=== PATIENT | female | born 1965 | race Caucasian/White ===

== ENCOUNTER 2021-08-13 16:55 | Emergency (ER) | payer BC, SELFPAY ==
[2021-08-13 17:06] VITALS: BP 140/80; PULSE 99; RESP 20; TEMP 37.4; O2SAT 100
--- NOTE | 2021-08-13 17:19 | ED.URI ---
HPI - URI/Sore Throat General Chief Complaint: Upper Respiratory Infection Stated Complaint: Cough/Shortness of Breath Time Seen by Provider: 08/13/21 17:19 Source: patient and family Mode of arrival: ambulatory Limitations: no limitations History of Present Illness HPI Narrative: PATIENT PRESENTS WITH A 6 DAY HISTORY OF COUGH AND CHEST CONGESTION WELL SINUS PRESSURE. PATIENT HAD A NEGATIVE COVID TEST 2 DAYS AGO. PATIENT HAD AN APPOINTMENT WITH PCP TODAY,BUT APPOINTMENT WAS CANCELLED DUE TO HER TARDINESS OF 5 MINUTES. Patient feels as if she is having an asthma flare and thinks that she may need a round of prednisone as well as a refill on her Symbicort inhaler. MD elicited complaint: cough Description of mucous: clear Related Data Home Medications Medication Instructions Recorded Confirmed Spiriva with HandiHaler 08/13/21 albuterol mcg INHALATION 08/13/21 Allergies Allergy/AdvReac Type Severity Reaction Status Date / Time clarithromycin Allergy Rash Verified 08/13/21 17:24 Review of Systems Review of Systems: CONSTITUTIONAL: Denies fever, chills, or sweats. EYES: Denies visual changes, redness, or discharge. ENT: Denies rhinorrhea, congestion, sore throat, or otalgia. CARDIOVASCULAR: Denies chest pain, palpitations, or edema. RESPIRATORY: Denies cough or dyspnea. GASTROINTESTINAL: Denies abdominal pain, nausea, vomiting, or diarrhea. GENITOURINARY: Denies dysuria or hematuria. SKIN: Denies rash or itching. MUSCULOSKELETAL: Denies back pain, joint pain, or myalgia. NEUROLOGIC: Denies headache, numbness, or weakness. PSYCHIATRIC: Denies anxiety or depression. PMFSH Comments At time of signature, agree with nursing past medical, surgical, social and family history. There is no relevant family history pertinent to the presenting complaint Exam Narrative: GENERAL: Well-appearing, well-nourished, and in no acute distress. HEAD: Normocephalic, atraumatic. EYES: PERRLA and EOMI. ENT: Nares clear, no rhinorrhea or epistaxis. Mucous membranes moist. Mild maxillary sinus pressure and tenderness mild postnasal drainage no pharyngeal erythremia no exudate no trismus able to open mouth fully NECK: Supple. CHEST: Clear to auscultation. No respiratory distress. HEART: Regular rate and rhythm. No murmur heard. Normal peripheral pulses. ABDOMEN: Soft, nontender, nondistended, normal active bowel sounds. EXTREMITIES: Normal range of motion. No edema. SKIN: Warm, dry, no rash. NEURO: No focal deficits. Alert and oriented x3. Aleksandar Coma Scale Eye Opening: Spontaneous 4 Aleksandar Coma Scale Motor: Obeys Commands 6 [place] Coma Scale Verbal: Oriented 5 Aleksandar Coma Scale Total 15 Course Course Level of Care: Express Care Visit Vital Signs Vital signs: Vital Signs Temperature 37.4 C 08/13/21 17:06 Pulse Rate 99 08/13/21 17:06 Respiratory Rate 20 08/13/21 17:06 Blood Pressure 140/80 08/13/21 17:06 Pulse Oximetry 100 08/13/21 17:06 Temperature 37.4 C 08/13/21 17:06 Pulse Rate 99 08/13/21 17:06 Respiratory Rate 20 08/13/21 17:06 Blood Pressure 140/80 08/13/21 17:26 Pulse Oximetry 100 08/13/21 17:06 Addressed elevated BP today. Today's blood pressure higher than recommended range. Discussed importance of follow -up with PCP and possible manager long term care effects/cardiovascular events related to HTN. Currently patient denies headache, dizziness, vision changes, CP or shortness of breath. MDM - URI/Sore Throat Differential Diagnosis Differential diagnosis: Likely upper respiratory infection, croup, otitis media, sinusitis, viral infection, bronchitis, influenza and pharyngitis Critical Care Time Critical Care Time Critical Care Time: No Discharge Plan Discharge Clinical Impression: Sinusitis, acute maxillary, Asthma Patient Disposition: Home, Self-Care Condition: Stable Instructions: Antibiotic Form, Asthma (DC) Additional Instructions: Continue to use your inhalers a
[2021-08-13 17:26] VITALS: BP 140/80
== END 2021-08-13 18:01 | disposition home or self-care (01) ==
PROVIDERS: Emergency Provider Nurse Practitioner Family; PCP Internal Medicine
DX: J01.00 Acute maxillary sinusitis, unspecified (principal); J45.909 Unspecified asthma, uncomplicated; Z98.84 Bariatric surgery status
CPT/HCPCS: 99203; G0463

== ENCOUNTER 2022-07-03 08:58 | Emergency (ER) | payer BC, SELFPAY ==
[2022-07-03 09:02] VITALS: BP 151/102; PULSE 87; RESP 16; TEMP 36.7; O2SAT 99
--- NOTE | 2022-07-03 09:07 | ED.URI ---
HPI - URI/Sore Throat General Chief Complaint: Upper Respiratory Infection Stated Complaint: Shortness of Breath Time Seen by Provider: 07/03/22 09:07 Source: patient and RN notes reviewed History of Present Illness HPI Narrative: Patient is a 56-year-old female who presents to urgent care with complaints of shortness of breath, chest congestion, ear pain and sore throat. Patient states that started 5 days ago and she has had positive contact with influenza by both of her daughters. Patient is asthmatic and has been using her inhaler as well as Mucinex with relief. Denies any known fevers. No other acute complaints. No acute distress noted. Patient aware of the plan of care. Some parts of this dictation were generated by voice recognition software and may contain typographical and/or grammatical inaccuracies. Related Data Home Medications Medication Instructions Recorded Confirmed Spiriva with HandiHaler 08/13/21 albuterol 90 mcg/actuation aerosol mcg inhalation 08/13/21 inhaler linaclotide 145 mcg capsule mcg 07/03/22 (Linzess) trazodone 50 mg tablet mg 07/03/22 07/03/22 Allergies Allergy/AdvReac Type Severity Reaction Status Date / Time clarithromycin Allergy Rash Verified 07/03/22 09:12 Review of Systems Review of Systems: CONSTITUTIONAL: Denies fever, chills, or sweats. EYES: Denies visual changes, redness, or discharge. ENT: Reports bilateral otalgia, congestion, sore throat CARDIOVASCULAR: Denies chest pain, palpitations, or edema. RESPIRATORY: reports of mild cough with increased dyspnea GASTROINTESTINAL: Denies abdominal pain, nausea, vomiting, or diarrhea. GENITOURINARY: Denies dysuria or hematuria. SKIN: Denies rash or itching. MUSCULOSKELETAL: Denies back pain, joint pain, or myalgia. NEUROLOGIC: Denies headache, numbness, or weakness. All other systems reviewed are negative, except as documented in HPI. PMFSH Comments At the time of my signature, I reviewed and agree with the nursing past medical, surgical, social, and family history. There is no relevant family history pertinent to the patient complaint. Exam Narrative: GENERAL: This is a well-nourished, well-developed patient, in no apparent distress. HEAD: normocephalic, atraumatic. EYES: PERRL. Sclera clear/white. Vision is grossly intact. EARS: External ears normal, auditory canals clear and without drainage, mild bilateral eustachian tube dysfunction without otitis. TMs normal without perforation. Hearing grossly intact. NOSE: External nose normal with no obvious nasal discharge, nares without redness, no rhinorrhea. THROAT: Mucous membranes moist, posterior pharynx clear. Moderate postnasal drainage NECK: Neck supple, non-tender without lymphadenopathy CARDIOVASCULAR: Regular rate and rhythm without murmurs, gallops, or rubs. RESPIRATORY: Clear to auscultation. Breath sounds equal bilaterally. No wheezes, rales, or rhonchi. GASTROINTESTINAL: Abdomen soft, non-tender, nondistended. Bowel sounds are active. No hepato-splenomegaly, or palpable masses. No guarding. SKIN: warm, intact with no suspicious lesions or rash, good texture and turgor. NEURO: awake, alert, and oriented to person, place and time. There were no obvious focal neurologic abnormalities. EXTREMITIES: No clubbing, cyanosis, or edema. Course Course Level of Care: Express Care Visit Vital Signs Vital signs: Vital Signs Temperature 98.1 F 07/03/22 09:02 Pulse Rate 87 07/03/22 09:02 Respiratory Rate 16 07/03/22 09:02 Blood Pressure 151/102 H 07/03/22 09:02 Pulse Oximetry 99 07/03/22 09:02 Oxygen Delivery Room Air 07/03/22 09:02 Temperature 98.1 F 07/03/22 09:02 Pulse Rate 87 07/03/22 09:02 Respiratory Rate 16 07/03/22 09:02 Blood Pressure 151/102 H 07/03/22 09:02 Pulse Oximetry 99 07/03/22 09:02 Oxygen Delivery Room Air 07/03/22 09:02 reviewed- Patient is informed that they may have pre-hypertension or hyperten
== END 2022-07-03 09:44 | disposition home or self-care (01) ==
PROVIDERS: Emergency Provider Nurse Practitioner Family; PCP Internal Medicine
DX: J11.1 Influenza due to unidentified influenza virus with other respiratory manifestations (principal)
CPT/HCPCS: 99213; G0463

== ENCOUNTER 2025-02-25 01:47 | Day surgery (SDC) | payer BC, SELFPAY ==
[2025-02-14 13:16] VITALS: BMI 28.5
--- OUTSIDE RECORDS SUMMARY | 2025-02-25 01:51 | XMS_ITS | Clinical Summary ---
Author Organization [facility] Address [address] [place] [address] Care Team Providers Care Heel Sorter Name Role Phone Ba Ramsey MD Primary Care Provider + Allergies Active Allergy Reactions Criticality Noted Date Comments Clarithromycin Diarrhea Low Reaction: Diarrhea, Medications traZODone (DESYREL) 50 mg tablet Take 1 tablet (50 mg total) by mouth nightly 2 Active cyclobenzaprine (FLEXERIL) 10 mg tablet Take 1 tablet (10 mg total) by mouth as needed 2 Active albuterol HFA (PROVENTIL HFA,VENTOLIN HFA,PROAIR HFA) 90 mcg/actuation inhaler 2 Active Linzess 290 mcg capsule Take 1 capsule (290 mcg total) by mouth daily 3 Active omeprazole (PriLOSEC) 40 mg capsule Take 1 capsule (40 mg total) by mouth daily Active PNV #[id number] acid-dha 35 mg iron-5 mg iron-1 mg capsule Take 1 tablet by mouth daily Active multivit with min-folic acid 200 mcg tablet,chewable Take 2 Gum by mouth daily Active uadftrzi-skcn-iw llag-hyalur ac 284-811-91-2 mg capsule Take 1 tablet by mouth daily Active ascorbic acid (vitamin C) 1,000 mg tablet Take 1 tablet (1,000 mg total) by mouth daily Active ELDERBERRY FRUIT ORAL Take 1 tablet by mouth daily Active famotidine (PEPCID) 40 mg tabletIndication s:Laryngeal spasm TAKE 1 TABLET (40 MG TOTAL) BY MOUTH NIGHTLY 90 tablet 3 3 Active triamcinolone (KENALOG) 0.1 % creamIndications :Contact dermatitis, unspecified contact dermatitis type, unspecified trigger Apply topically 3 (three) times a day for 10 days 45 g 4 Active Active Problems Problem Noted Date Diagnosed Date Abnormal finding on breast imaging 07/28/2023 Mass of upper outer quadrant of left breast 01/2023 Laryngeal spasm 07/17/2022 Assessment & Plan (07/17/2022 4:00 PM CLINICAL DOCUMENTATION SPEC): Omeprazole 30-60 minutes before first meal of the day Start Pepcid 40 mg at bedtime LPR discussed and Handout provided Referred otalgia of both ears 07/17/2022 Assessment & Plan (07/17/2022 4:00 PM CLINICAL DOCUMENTATION SPEC): TMJ dysfunction discussed and Handout provided Non-seasonal allergic rhinitis due to pollen 05/2023 Assessment & Plan (07/17/2022 4:01 PM CLINICAL DOCUMENTATION SPEC): Flonase 2 sprays into each nostril while looking down over the sink, do not sniff in or blow nose after use for at least 30 minutes daily Obstructive sleep apnea syndrome 08/12/2016 Overview (10/11/2016): GORAN - Obstructive sleep apnea Mass of lower extremity 08/18/2014 Overview (10/11/2016): Mass of thigh Dysfunction of eustachian tube 08/18/2014 Overview (10/11/2016): Dysfunction of eustachian tube Anxiety state 11/20/2013 Overview (10/10/2016): ANXIETY STATE NOS Irritable bowel syndrome 11/20/2013 Overview (10/11/2016): IRRITABLE BOWEL SYNDROME Vitamin D deficiency 05/18/2013 Overview (10/11/2016): Vitamin D deficiency Immunizations Immunization Administration Dates Next Due Influenza, Trivalent, IM (MDV) 04/14/2013 Influenza, Trivalent, Recomb inant, Egg Free, Preservative Free, Antibiotic Free, IM (FLUBLOK) 04/28/2014 Tdap 2009 Surgical History Surgery Date Site/Laterality Comments OTHER SURGICAL HISTORY 2004 hyperparathyroid: parathyroidectomy TONSILLECTOMY Tonsillectomy TOTAL ABDOMINAL HYSTERECTOMY Hysterectomy, total OTHER SURGICAL HISTORY 2013 broken L foot: [facility] ER visit BARIATRIC SURGERY SECTION REDUCTION MAMMAPLASTY 09/04/1993 - 10/04/1993 Bilateral PARATHYROIDECTOMY Bilateral Medical History Medical History Date Comments Hx Other Medical fibroid uterine tumor 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 Asthma Hx Other Medical PCO Hx Other Medical hyperparathyroi d Hx Other Medical vocal cord nodu le Deviated nasal septum deviated n artur septum Gastroesophageal reflux disease GERD Irritable bowel syndrome Irritab le bowel disease Hx Other Medical goiter Asthma Asthma; Comments : [facility] 12/06/2013 - Hx Other Medical back pain; Comm ents: [facility] 12/06/2013 - Hx Other Medical Migraine; Comme nts: [facility] 12/06/2013 - Hx Other Medical Stomach ulcers; Comments: [facility] 12/06/2013 - Hx Other Medical Gastric reflux; Comments: [facility] 12/06/2013 - Hx Other Medical ADHD; Comments: [facility] 12/06/2013 - Hx Other Medical Kidney failure; Comments: [facility] 12/06/2013 - Hx Other Medical Breast reductio n; Comments: [facility] 12/06/2013 - Hx Other Medical broken L foot; Comments: [facility] 03/15/2014 -Dr. Vela Hx Other Medical Re -broke L kaleb t Hx Other Medical preeclampsia IBS (irritable bowel syndrome) PONV (postoperative nausea and vomiting) Sleep apnea Anemia Family History Medical History Relation Name Comments Other Brother HIV; COPD Father COPD; Hypertension Father Hypertension; Other Father CVA; Breast cancer Father's Sister 1 Breast cancer Father's Sister 2 Ovarian cancer Maternal Grandmother Dementia Mother Dementia; Diabetes Mother Diabetes mellit us; Hypertension Mother Hypertension; Hypertension Other 1 Family history of Hypertension; Cancer Other 2 Family history of Cancer; Diabetes Other 3 Family history of Diabetes; Lung disease Other 4 Family history of Lung problems; Thyroid cancer Neg Hx Relation Name Status Comments Brother Father Father's Sister 1 Father's Sister 2 Alive Maternal Grandmother Mother Other 1 Other 2 Other 3 Other 4 Social History Tobacco Use Types Packs/Day Years Used Date Smoking Tobacco: Former Smokeless Tobacco: Never Tobacco Cessation:Counseling Given: Not Answered Alcohol Use Standard Drinks/Week Comments Yes 0 (1 standard drink = 0.6 oz pur e alcohol) AUDIT-C Answer Date Recorded Q1: How often do you have a drink containing alc ohol? 2-4 times a month 05/28/2023 Q2: How many drinks containi ng alcohol do you have on a typical day when you are drinking? 3 or 4 05/28/2023 Q3: How often do you have si x or more drinks on one occasion? Never 05/28/2023 PHQ-2 Answer Date Recorded PHQ-2 Total Score (If total score is 3 or more points, staff should administer the PHQ-9) 0 08/13/2022 Personal Safety Answer Date Recorded Have you ever been in or are you currently in a harmful physical or emotional relationship or is someone making you feel afraid or unsafe? Denies 05/28/2023 Comments No Sex and Gender Information Value Date Recorded Sex Assigned at Not on file Legal Sex Female 6:17 PM CLINICAL DOCUMENTATION SPEC Gender Identity Not on file Sexual Orientation Not on file Obstetrics History Para Term AB IAB SAB Ectopic Multiple Livin g Live Births 2 2 2 Date Outcome GA Total Labor Labor/2nd/3rd Weight Sex Type Anes PTL Sharon A1 A5 Name Clin Term Term Last Filed Vital Signs Vital Sign Reading Time Taken Comments Blood Pressure 148/92 11/04/2023 3:14 PM CDT Pulse 86 11/04/2023 3:14 PM CDT Temperature 37 C (98.6 F) 11/04/2023 3:14 PM CDT Respiratory Rate 17 11/04/2023 3:14 PM CDT Oxygen Saturation 97% 11/04/2023 3:14 PM CDT Inhaled Oxygen Concentration - - Weight 68 kg (150 lb) 11/04/2023 3:14 PM CDT Height 154.9 cm (5' 1) 11/04/2023 3:14 PM CDT Body Mass Index 28.34 11/04/2023 3:14 PM CDT Plan of Treatment Health Maintenance Due Date Last Done Comments Colon Cancer Screening-Colonoscopy 1966 Hepatitis C Screening 1966 Hepatitis B Screening 1984 Zoster Vaccine (1 of 2) 2016 DTaP/Tdap/Td Vaccine (2 - Td or Tdap) 09/13/2019 2009 Depression Screening 08/13/2023 08/13/2022, 05/23/20 17 Regular Well Visit/Exam 18-64 08/13/2023 08/13/2022 Breast Cancer Screening-Mammogram 04/21/2024 04/21/2023, 03/21/2022, 02/16/2021, Additional history exists Influenza Vaccine (#1) 2025 04/28/2014, 2012 Pneumococcal vaccine <65 Aged Out No longer eligible based on patient's age to complete this topic Procedures Procedure Name Priority Date/Time Associated Diagnosis Comments DIAGNOSTIC MAMMOGRAM BILATERAL W CHARLY Schedule Routine, Read Routine (OP Routine) 04/21/2023 8:48 AM CDT Mastodynia from Last 3 Months or Most Recently Relevant to Health Maintenance Results * Diagnostic Mammogram Bilateral W Charly (04/21/2023 8:48 AM CDT) Anatomical Region Laterality Modality Breast Bilateral Mammography 04/21/2023 9:38 AM CDT Impressions 04/21/2023 9:38 AM CDT Lesion in the left breast at the 11 o'clock position most likely represents a complicated cyst and is probably benign. This correlates with the site of focal left breast pain. Follow-up left mammogram and ultrasound is recommended in 6 months time. A normal lymph node correlates with the site of right breast pain/palpable. This is benign. Annual mammography for the right breast is recommended. BI-RADS: 3 - Probably benign Electronically signed by: Annelise Willis M.D. Narrative 04/21/2023 9:38 AM CDT EXAMINATION: DIAGNOSTIC MAMMOGRAM BILATERAL W CHARLY, US BREAST LEFT LIMITED ORDERING HEALTHCARE PROVIDER: BA RAMSEY HISTORY: Bilateral focal breast pain, palpable area right breast, annual study COMPARISON: 03/21/2022, 02/16/2021, 08/16/2015, 04/08/2014 TECHNIQUE: CC and MLO views of the bilateral breasts were obtained with digital technique using breast tomosynthesis with C view. Computer aided detection was utilized. FINDINGS: DENSITY: There are scattered fibroglandular elements in the bilateral breasts. BREASTS: Markers are placed at the site of the focal bilateral breast pain. No mammographic abnormality is identified associated with the markers. Per the survey technologist, the palpable area of the right breast is outside the field of view of mammography. There are no suspicious masses, suspicious calcifications, or other suspicious findings in either breast. There has been no suspicious interval change. TARGETED BILATERAL BREAST ULTRASOUND Targeted right breast ultrasound was performed in the region of interest. At the time of sonographic interrogation, the patient indicated the focal pain and palpable were in fact in the same area. This correlates as the 11 o'clock position 10 cm from the nipple. A normal lymph node is identified with a fatty hilum. No other sonographic findings are appreciated. Targeted left breast ultrasound was performed in the region of interest. Per the patient this correlates as the 11 o'clock position 9 cm from the nipple. There is a vague hypoechoic oval-shaped lesion identified in the superficial tissues measuring 7 mm x 3 mm x 5 mm. Lesion is parallel with the skin. There is no evidence of internal color flow. There is posterior acoustical enhancement. This has the appearance of a complicated cyst. This may correlate with a stable mammographic density which lies approximately 2 cm from the mammographic marker. Ba Ramsey MD IMG MAMMO PROCEDURES Fin al Result from Last 3 Months or Most Recently Relevant to Health Maintenance Insurance [employer] [facility] BL[place] [employer] [place] Care Teams Heel Sorter Relationship Specialty Start Date End Date Ba Ramsey MD [id number] [place] [address] PCP - General 11/19/13
[2025-02-25 08:18] VITALS: BP 132/81; PULSE 66; RESP 18; TEMP 36.6; O2SAT 99; BMI 29.2
--- NOTE | 2025-02-25 08:21 | WPDANESEPPF ---
Anes - Initial Pre Proc Eval Procedure: Operation Date: 02/25/25 09:30 Proposed Procedures p EGD & Diagnostic Colonoscopy - Israel Dodd MD Date/Time: 02/25/25 08:21 Surgeon: Israel Dodd MD Pre Op Diagnosis: Gastro-esophageal reflux disease without esophagit Patient Data Age: 59 Gender: F Height: 1.57 m Weight: 72.7 kg Last Vital Signs Temp 36.6 C 02/25/25 08:18 Pulse 66 02/25/25 08:18 Resp 18 02/25/25 08:18 BP 132/81 02/25/25 08:18 Pulse Ox 99 02/25/25 08:18 O2 Del Method Room Air 02/25/25 08:18 Allergies Allergy/AdvReac Type Severity Reaction Status Date / Time clarithromycin Allergy Rash Verified 02/25/25 08:17 Home Medications ?Medication ?Instructions ?Recorded ?Confirmed ?Type Spiriva with HandiHaler 08/13/21 History albuterol 90 mcg/actuation aerosol 90 mcg inhalation DAILY 08/13/21 02/25/25 History inhaler tiotropium bromide 1.25 2 puff inhalation DAILY COUGH #4 08/13/21 02/25/25 Rx mcg/actuation mist for inhalation grams (Spiriva Respimat) linaclotide 145 mcg capsule 145 mcg PO DAILY 07/03/22 02/25/25 History (Linzess) methylprednisolone 4 mg tablets in See Rx Instructions PO .COMPLEX 07/03/22 02/14/25 Rx a dose pack (Medrol (Brent)) #21 ea trazodone 50 mg tablet 50 mg PO DAILY 07/03/22 02/25/25 History budesonide 160 mcg-glycopyr 9 2 inh inhalation DAILY PRN 02/14/25 02/14/25 History mcg-formot 4.8 mcg/actuation HFA Allergies inhaler (Breztri Aerosphere) famotidine 40 mg tablet 40 mg PO DAILY 02/14/25 02/25/25 History fluticasone fur. 100 mcg-umeclid 1 inh inhalation DAILY 02/14/25 02/25/25 History 62.5 mcg-vilant 25 mcg inhalat.powder (Trelegy Ellipta) magnesium citrate (Citrate of 800 ml PO DAILY 02/14/25 02/25/25 History Magnesia oral) montelukast 10 mg tablet 10 mg PO DAILY 02/14/25 02/25/25 History omeprazole 40 mg capsule,delayed 40 mg PO DAILY 02/14/25 02/25/25 History release Patient hx anesthesia problems: none Family hx anesthesia problems: none Results Review: All pre-operative results and documents have been reviewed as part of the pre-operative evaluation. [facility] Past Medical History Medical History (Updated 02/25/25 @ 08:21 by Shane Marie MD) GORAN (obstructive sleep apnea) Surgical History Surgical History (Updated 02/25/25 @ 08:21 by Shane Marie MD) History of gastric surgery Social History Social History Smoking packs per day: 1 Smoking cigarettes per day: 20.0 Years smoked: 10 Smoking pack-years: 10.00 Smoking status: Former smoker Tobacco type: cigarettes Alcohol intake: current Alcohol use details: Occasionally Substance use: never Substance use type: does not use Living arrangements: with family Spiritual care concerns: No Anes - Eval Final PreProcedure Day of Procedure 02/25/25 08:21 Patient weight: overweight Heart: regular rate and rhythm Lungs: clear to auscultation Airway: Mallampati scale class II Neurological: alert and oriented Last oral intake: >/= 8 hours ASA classification: III Emergent: no Anesthetic plan: proceed Anesthesia type and monitoring: general GIVS and standard monitoring Results Review: All pre-operative results and documents have been reviewed as part of the pre-operative evaluation. Informed Consent: The patient's anesthetic plan and its attendant risks and benefits were discussed with the patient/family/POA. Questions were solicited and answers provided to the satisfaction of the patient/family/POA.
[2025-02-25] MEDS: LACTATED RINGERS 1,000 ML 150 ML IV CONT (08:37)
--- NOTE | 2025-02-25 09:15 | PM.HPGS ---
History of Present Illness History of Present Illness Consent: Risks, benefits, and alternatives have been discussed and questions answered. Patient agrees to proceed with procedure. Chief complaint: Gastro-esophageal reflux disease without esophagit Narrative: Africa Mondragon is a 59 year old female with gastric sleeve since with more gerd on omeprazole and famotidine, also ibs-c with hemorrhoids, last colonoscopy about 6 years ago Review of Systems Review of Systems: All systems reviewed & are unremarkable except as noted in HPI and below PMFSH Past Medical History Medical History (Updated 02/25/25 @ 09:17 by Israel Dodd MD) Irritable bowel syndrome with constipation GERD (gastroesophageal reflux disease) GORAN (obstructive sleep apnea) Surgical History Surgical History (Updated 02/25/25 @ 08:21 by Shane Marie MD) History of gastric surgery Social History Social History Smoking packs per day: 1 Smoking cigarettes per day: 20.0 Years smoked: 10 Smoking pack-years: 10.00 Smoking status: Former smoker Tobacco type: cigarettes Alcohol intake: current Alcohol use details: Occasionally Substance use: never Substance use type: does not use Living arrangements: with family Spiritual care concerns: No Meds Home Medications and Allergies Home Medications ?Medication ?Instructions ?Recorded ?Confirmed ?Type Spiriva with HandiHaler 08/13/21 History albuterol 90 mcg/actuation aerosol 90 mcg inhalation DAILY 08/13/21 02/25/25 History inhaler tiotropium bromide 1.25 2 puff inhalation DAILY COUGH #4 08/13/21 02/25/25 Rx mcg/actuation mist for inhalation grams (Spiriva Respimat) linaclotide 145 mcg capsule 145 mcg PO DAILY 07/03/22 02/25/25 History (Linzess) methylprednisolone 4 mg tablets in See Rx Instructions PO .COMPLEX 07/03/22 02/14/25 Rx a dose pack (Medrol (Brent)) #21 ea trazodone 50 mg tablet 50 mg PO DAILY 07/03/22 02/25/25 History budesonide 160 mcg-glycopyr 9 2 inh inhalation DAILY PRN 02/14/25 02/14/25 History mcg-formot 4.8 mcg/actuation HFA Allergies inhaler (Breztri Aerosphere) famotidine 40 mg tablet 40 mg PO DAILY 02/14/25 02/25/25 History fluticasone fur. 100 mcg-umeclid 1 inh inhalation DAILY 02/14/25 02/25/25 History 62.5 mcg-vilant 25 mcg inhalat.powder (Trelegy Ellipta) magnesium citrate (Citrate of 800 ml PO DAILY 02/14/25 02/25/25 History Magnesia oral) montelukast 10 mg tablet 10 mg PO DAILY 02/14/25 02/25/25 History omeprazole 40 mg capsule,delayed 40 mg PO DAILY 02/14/25 02/25/25 History release Allergies Allergy/AdvReac Type Severity Reaction Status Date / Time clarithromycin Allergy Rash Verified 02/25/25 08:17 Vital Signs Vital Signs - 24 hr 02/25/25 08:18 Temperature 97.8 F Pulse Rate 66 Respiratory Rate 18 Blood Pressure 132/81 Pulse Oximetry 99 Oxygen Delivery Room Air Exam Const: General: comfortable and no acute distress HENMT: Face/Nose/Sinus: Normal nares present Eyes: General: appearance normal, both eyes and all related structures Neck: Neck: no JVD Resp: Auscultation: clear to auscultation bilaterally Cardio: Rate: regular rate Rhythm: regular rhythm GI: Inspection: non-distended GI Palp: Yes Soft to palpation Skin: General skin exam: normal color Neuro: General: gait normal Speech: normal speech Extrem: General: normal to inspection Psych: Mental Status: mental status grossly normal Assessment and Plan Assessment and plan (1) GERD (gastroesophageal reflux disease): Code(s): K21.9 - Gastro-esophageal reflux disease without esophagitis Status: Acute Assessment and Plan: egd (2) Irritable bowel syndrome with constipation: Code(s): K58.1 - Irritable bowel syndrome with constipation Status: Acute Assessment and Plan: colonoscopy
--- NOTE | 2025-02-25 09:27 | SUR.OPER ---
EGD start 919 end 921, Colonoscopy 926
--- NOTE | 2025-02-25 09:36 | S_PTH ---
PATIENT: Africa Mondragon LOC: [facility][id number] AGE/SX: 59/F ROOM: RE02/25/[address]: Israel Dodd MD : 1965 BED: DIS: 02/25/2025 SPEC #: [id number] RECD: 02/25/25 10:15 STATUS: JAMIE REQ #: [id number] EVE: 02/25/25 09:[address]: Israel Dodd DEPT: [facility] Surgical RECD BY: Gisella Dietz ENTERED: 02/25/25 10:16 SP TYPE: Surgical OTHR DR: Ba ValdesMD Tissues: A - Gastric Biopsy Procedures: Hematoxylin and Eosin Stain Gross and Microscopic Level 4
[2025-02-25 09:37] VITALS: BP 105/60; PULSE 67; RESP 15; O2SAT 100
[2025-02-25 09:47] VITALS: BP 110/61; PULSE 68; RESP 20; O2SAT 100
[2025-02-25 09:57] VITALS: BP 136/77; PULSE 72; RESP 20; O2SAT 99
== END 2025-02-25 10:04 | disposition home or self-care (01) ==
PROVIDERS: PCP Internal Medicine; Visit Provider Internal Medicine Gastroenterology
PROC: 0DJ08ZZ Inspection of Upper Intestinal Tract, Via Natural or Artificial Opening Endoscopic (ICD-10-PCS; CPT 45378; principal; 2025-02-25 09:30)
DX: K21.9 Gastro-esophageal reflux disease without esophagitis (principal); K58.1 Irritable bowel syndrome with constipation; K64.4 Residual hemorrhoidal skin tags; K44.9 Diaphragmatic hernia without obstruction or gangrene; G47.33 Obstructive sleep apnea (adult) (pediatric); Z98.84 Bariatric surgery status; Z87.891 Personal history of nicotine dependence; Z79.51 Long term (current) use of inhaled steroids
CPT/HCPCS: 43239; 45378; 88305; J2704; J7120